=== PATIENT | male | born 1965 | race Caucasian/White ===

== ENCOUNTER → 2020-01-10 | Outpatient (CLI) | payer OTHER ==
[~2020-01-10] MED LIST: IOPAMIDOL 370 MG/ML 200 ML INFUS..BTL INJ ONE; SODIUM CHLORIDE 0.9% 250ML 250 ML ONE
--- NOTE | 2020-01-10 11:29 | Diagnostic Imaging Report ---
CT of the abdomen and pelvis with and without contrast TECHNIQUE: CT of the abdomen and pelvis WITHOUT and WITH intravenous contrast and WITHOUT oral contrast. 3-D reconstructions were performed and interpreted. Dose modulation, iterative reconstruction, and/or weight-based adjustment of the mA/kV was utilized to reduce the radiation dose to as low as reasonably achievable. IV CONTRAST: 100 mL of Isovue-370 ORAL CONTRAST: None RADIATION DOSE: Total DLP: 1806 mGy*cm COMPLICATIONS: None INDICATION: ^[id number] ^1030 ^GROSS HEMATURIA. COMPARISON: None. FINDINGS: LOWER THORAX: Unremarkable. HEPATOBILIARY: No focal hepatic lesions. Gallbladder is unremarkable. No biliary ductal dilatation. SPLEEN: No splenomegaly. PANCREAS: No focal masses or ductal dilatation. ADRENALS: No adrenal nodules. KIDNEYS/URETERS: Noncontrast images are negative for nephrolithiasis. Negative for ureteral stone. Negative for bladder stone. Negative for hydronephrosis or perinephric fluid collection. Symmetric cortical enhancement and excretion of contrast is noted within nondilated ureters. Negative for intraluminal filling defect within the upper urinary tract system. Bladder is decompressed limiting evaluation although contrast is identified within the decompressed bladder without intraluminal filling defect. PELVIC ORGANS/BLADDER: Urinary bladder is decompressed with mild wall thickening versus artifact of underdistention. Prostate is within normal limits for size. PERITONEUM/RETROPERITONEUM: No free air or fluid. Tiny fat-containing umbilical hernia is noted. LYMPH NODES: No lymphadenopathy. VESSELS: Unremarkable. GI TRACT: Limited evaluation due to lack of oral contrast and under distention of the stomach and colon. Negative for obstruction or surrounding inflammatory changes. Normal appendix is noted.. BONES AND SOFT TISSUES: Negative for acute osseous abnormality. Mild to moderate multilevel degenerative changes of the lower thoracic and lumbar spine are noted. No suspicious lytic or blastic lesion is identified. IMPRESSION: 1. Negative for renal stone, hydronephrosis or suspicious enhancing renal mass. 2. Urinary bladder is underdistended with questionable wall thickening versus artifact of underdistention. Correlate for any evidence of cystitis. Signed by: Arsh Young MD on 01/10/2020 11:26 AM
== END ==
LOC: CT 09:45
PROVIDERS: ATTEND Urology
DX: R31.0 Gross hematuria (principal)
CPT/HCPCS: 74178; J7050; Q9967

== ENCOUNTER → 2022-05-17 | Outpatient (CLI) | payer BC | LOC: NM 08:01 | PROVIDERS: ATTEND Internal Medicine Critical Care Medicine | DX: R06.02 Shortness of breath (principal) | CPT/HCPCS: 71046; 78580; A9540 ==